=== PATIENT | male | born 1970 | race Caucasian/White ===

== ENCOUNTER 2022-11-03 13:02 | Outpatient (CLI) | payer BC, SELFPAY ==
[2022-11-03 13:17] LABS: Chloride* 106 mmol/L (96-114); Potassium* 4.7 mmol/L (3.6-5.1); Sodium* 143 mmol/L (135-149)
[2022-11-03 13:20] LABS: Blood Urea Nitrogen* 13 mg/dL (7-30); Carbon Dioxide* 31 mmol/L (20-32); Cholesterol* 158 mg/dL (90-199); Creatinine* 0.9 mg/dL (0.5-1.5); Estimated Glomerular Filt Rate 103 ml/min; Glucose* 95 mg/dL (60-115)
[2022-11-03 13:21] LABS: Calcium* 9.5 mg/dL (8.4-10.6); HDL Cholesterol* 69 mg/dL (>=40); LDL Cholesterol Calculated 77 mg/dL (<100); Triglycerides* 58 mg/dL (40-149)
[2022-11-03 13:51] LABS: PSA Screen* 0.87 ng/mL (0.10-4.00)
== END 2022-11-03 13:03 | disposition home or self-care (01) ==
PROVIDERS: PCP Emergency Medicine; Visit Provider Emergency Medicine
DX: Z13.1 Encounter for screening for diabetes mellitus (principal); Z12.5 Encounter for screening for malignant neoplasm of prostate; Z13.6 Encounter for screening for cardiovascular disorders
CPT/HCPCS: 80048; 80061; 84153

== ENCOUNTER 2023-11-28 13:12 | Outpatient (CLI) | payer BC, SELFPAY | END 2023-11-28 13:13 | disposition home or self-care (01) | PROVIDERS: PCP Emergency Medicine; Visit Provider Emergency Medicine | DX: Z13.220 Encounter for screening for lipoid disorders (principal); Z13.1 Encounter for screening for diabetes mellitus; Z12.5 Encounter for screening for malignant neoplasm of prostate | CPT/HCPCS: 80048; 80061; G0103 ==

== ENCOUNTER 2024-12-24 07:58 | Outpatient (CLI) | payer BC, SELFPAY | END 2024-12-24 07:59 | disposition home or self-care (01) | LOC: NFLDREF 12-26 04:16 | PROVIDERS: PCP Emergency Medicine; Referring Provider Emergency Medicine; Visit Provider Emergency Medicine | DX: R03.0 Elevated blood-pressure reading, without diagnosis of hypertension (principal); Z13.1 Encounter for screening for diabetes mellitus; Z12.5 Encounter for screening for malignant neoplasm of prostate; Z13.6 Encounter for screening for cardiovascular disorders | CPT/HCPCS: 80048; 80061; G0103 ==